=== PATIENT | male | born 1940 | race Caucasian/White ===

== ENCOUNTER 2019-04-23 08:14 | Emergency (ER) | payer OTHER, MEDICARE ==
[2019-04-23] MEDS ORDERED: NA CHLORIDE 0.9% 2,000 ML ONE (08:38)
[2019-04-23 08:46] LABS: Basophils % 0.4 % (0-1.3); Hematocrit 49.9 % (39.6-49.0); MPV 8.7 fL (7.6-11.3); RBC Red Blood Cell Count 5.34 M/uL (4.33-5.43)
[2019-04-23 08:47] LABS: Protime INR 0.99
[2019-04-23] MEDS ORDERED: METHYLPREDNISOLONE 125 MG INJ ONE (08:47)
[2019-04-23] MEDS ORDERED: FAMOTIDINE 20 MG/2 ML VIAL IV ONE (08:47)
[2019-04-23] MEDS ORDERED: DIPHENHYDRAMINE 50 MG/ML VIAL ONE (08:47)
--- NOTE | 2019-04-23 08:56 | RAD REPORT ---
EXAM DESCRIPTION: RAD - Chest Single View - 04/23/2019 8:45 am CLINICAL HISTORY: MALAISE Chest pain. COMPARISON: No comparisons FINDINGS: Portable technique limits examination quality. The lungs are grossly clear. The heart is normal in size. No displaced fractures. IMPRESSION: No acute intrathoracic process suspected.
[2019-04-23 09:01] LABS: ALT/SGPT 27 U/L (12-78); AST/SGOT 22 U/L (15-37); Albumin 3.2 g/dL (3.4-5.0); Alkaline Phosphatase 82 U/L (45-117); BUN Blood Urea Nitrogen 16 mg/dL (7-18); Bicarbonate 25 mmol/L (21-32); Bilirubin Direct 0.2 mg/dL (0-0.2); Bilirubin Total 0.6 mg/dL (0.2-1.0); Glucose Level 124 mg/dL (74-106); Magnesium 2.1 mg/dL (1.8-2.4); NT PRO-BNP 46 pg/mL (<450); Potassium 3.7 mmol/L (3.5-5.1); Sodium Level 140 mmol/L (136-145); Troponin (Emerg Dept Use Only) < 0.02 ng/mL (0.0-0.045)
--- NOTE | 2019-04-23 10:01 | ER ---
Nurse's Notes [facility] Name: Rodolfo Dawson Age: 78 yrs Sex: Male : 1940 Arrival Date: 04/23/2019 Time: 08:14 Bed 13 Private MD: Diagnosis: Diarrhea, unspecified;Weakness;Enteritis;Hypotension Presentation: 04/23 08:25 Presenting complaint: Patient states: rash started this morning, all over body, also iw has not been feeling well for past 3 days, diarrhea X 2 days, pt warm but diaphoretic. Transition of care: patient was not received from another setting of care. Onset of symptoms was April 20, 2019. Risk Assessment: Do you want to hurt yourself or someone else? Patient reports no desire to harm self or others. Initial Sepsis Screen: Does the patient meet any 2 criteria? Systolic BP < 90 mmHg. Does the patient have a suspected source of infection? Yes: Other: diarrhea. Care prior to arrival: None. 08:25 Method Of Arrival: Wheelchair iw 08:25 Acuity: JESSI 2 iw Triage Assessment: 08:30 General: Appears in no apparent distress. comfortable, ill, Behavior is cooperative, bp appropriate for age, anxious. Pain: Denies pain. EENT: No deficits noted. Neuro: Level of Consciousness is awake, alert, obeys commands, Oriented to person, place, time, situation, Appropriate for age. Cardiovascular: Rhythm is sinus rhythm. Respiratory: Reports shortness of breath Onset: The symptoms/episode began/occurred this morning, the patient has mild shortness of breath. GI: Reports diarrhea. : No signs and/or symptoms were reported regarding the genitourinary system. Derm: Rash noted that is itchy, red, urticaria. Musculoskeletal: No deficits noted. Historical: - Allergies: 08:28 Benadryl; iw - Home Meds: 08:28 None [Active]; iw - PMHx: 08:28 None; iw - PSHx: 08:28 None; iw - Immunization history:: Adult Immunizations not up to date. - Coronavirus screen:: The patient has NOT traveled to [place] in the past 14 days. Proceed with normal triage process as indicated. - Social history:: Smoking status: Patient denies any tobacco usage or history of. - Ebola Screening: : Patient negative for fever greater than or equal to 101.5 degrees Fahrenheit, and additional compatible Ebola Virus Disease symptoms Patient denies exposure to infectious person Patient denies travel to an Ebola-affected area in the 21 days before illness onset No symptoms or risks identified at this time. Screenin:35 Abuse screen: Denies threats or abuse. Denies injuries from another. Nutritional bp screening: No deficits noted. Tuberculosis screening: No symptoms or risk factors identified. Fall Risk None identified. Assessment: 08:35 General: SEE TRIAGE NOTE. bp 09:15 Reassessment: Patient appears in no apparent distress at this time. Patient and/or hb family updated on plan of care and expected duration. Pain level reassessed. Patient is alert, oriented x 3, equal unlabored respirations, skin warm/dry/pink. 10:13 Reassessment: Patient appears in no apparent distress at this time. Patient and/or hb family updated on plan of care and expected duration. Pain level reassessed. Patient is alert, oriented x 3, equal unlabored respirations, skin warm/dry/pink. Patient denies pain at this time. Patient states feeling better. Patient states symptoms have improved. Vital Signs: 08:28 BP 60 / 51; Pulse 57; Resp 20 S; Temp 97.6(O); Pulse Ox 95% on R/A; Weight 86.18 kg; iw Height 5 ft. 9 in. (175.26 cm); Pain 0/10; 08:41 BP 90 / 65; Pulse 57; Resp 12; Pulse Ox 97% ; bp 09:28 BP 126 / 72 Supine; Pulse 70; hb 09:33 BP 120 / 72 Sitting; Pulse 75; hb 09:39 BP 123 / 76 Standing; Pulse 77; hb 08:28 Body Mass Index 28.06 (86.18 kg, 175.26 cm) iw ED Course: 08:14 Patient arrived in ED. as 08:20 David Lainez, SON is Primary Nurse. bp 08:27 Triage completed. iw 08:28 Arm band placed on. iw 08:30 Leonard Mcghee MD is Attending Physician. kdr 08:30 Inserted saline lock: 18 gauge in right forearm, using aseptic technique. Blood bp collected. 08:41 Patient has correct armband on for positive identification. Bed in low position. Call bp light in reach. Side rails up X2. lunchroom monitor on. Pulse ox on. NIBP on. 09:15 No provider procedures requiring assistance completed. IV discontinued, intact, hb bleeding controlled, No redness/swelling at site. Pressure dressing applied. Administered Medications: 08:35 Drug: NS 0.9% 1000 ml Route: IV; Rate: 1000 ml; Site: right forearm; bp 08:38 Drug: NS 0.9% 1000 ml Route: IV; Rate: 1 bolus; Site: right forearm; bp 08:50 Drug: Pepcid 20 mg Route: IVP; Site: right forearm; hb 08:51 Drug: SOLU-Medrol 125 mg Route: IVP; Site: right forearm; hb 08:51 Drug: Benadryl 25 mg Route: IVP; Site: right forearm; hb Outcome: 09:15 Discharged to home ambulatory, with family. hb 09:15 Condition: stable 09:15 Discharge instructions given to patient, Instructed on discharge instructions, follow up and referral plans. medication usage, Demonstrated understanding of instructions, follow-up care, medications. 10:00 Discharge ordered by . kdr 10:14 Patient left the ED. hb Signatures: Leonard Mcghee MD MD kdr Marilynn Dugan Irene, RN RN Bhavani Cunningham RN RN David Lainez RN RN bp
--- NOTE | 2019-04-23 10:02 | EDPHYS ---
Physician Documentation [facility] Name: Rodolfo Dwason Age: 78 yrs Sex: Male : 1940 Arrival Date: 04/23/2019 Time: 08:14 Bed 13 Private MD: ED Physician Leonard Mcghee HPI: 04/23 09:02 This 78 yrs old Male presents to ER via Wheelchair with complaints of kdr Shortness Of Breath, Hives. 09:04 The patient has had diarrhea for the last three - four days. Profuse, watery and brown. kdr It had been improving and then had worsening of his s/s yesterday. He also noted a new rash this morning that started under his arm pits and extended down and and around his trunk. He states that the rash is very itchy. He has no other complaints at this time. Onset: The symptoms/episode began/occurred gradually, 3 day(s) ago. Severity of symptoms: At their worst the symptoms were moderate in the emergency department the symptoms are unchanged. The patient has not experienced similar symptoms in the past. The patient has not recently seen a physician. The patient is visiting here from [place] and has not had any known exposure foreign travelers. Historical: - Allergies: 08:28 Benadryl; iw - Home Meds: 08:28 None [Active]; iw - PMHx: 08: None; iw - PSHx: 08:28 None; iw - Immunization history:: Adult Immunizations not up to date. - Coronavirus screen:: The patient has NOT traveled to [place] in the past 14 days. Proceed with normal triage process as indicated. - Social history:: Smoking status: Patient denies any tobacco usage or history of. - Ebola Screening: : Patient negative for fever greater than or equal to 101.5 degrees Fahrenheit, and additional compatible Ebola Virus Disease symptoms Patient denies exposure to infectious person Patient denies travel to an Ebola-affected area in the 21 days before illness onset No symptoms or risks identified at this time. ROS: 09:04 Constitutional: Negative for fever, chills, and weight loss, Eyes: Negative for injury, kdr pain, redness, and discharge, ENT: Negative for injury, pain, and discharge, Neck: Negative for injury, pain, and swelling, Cardiovascular: Negative for chest pain, palpitations, and edema, Respiratory: Negative for shortness of breath, cough, wheezing, and pleuritic chest pain, Back: Negative for injury and pain, : Negative for injury, bleeding, discharge, and swelling, MS/Extremity: Negative for injury and deformity, Neuro: Negative for headache, weakness, numbness, tingling, and seizure activity. Psych: Negative for depression, anxiety, suicide ideation, homicidal ideation, and hallucinations, Allergy/Immunology: Negative for hives, rash, and allergies, Endocrine: Negative for neck swelling, polydipsia, polyuria, polyphagia, and marked weight changes, Hematologic/Lymphatic: Negative for swollen nodes, abnormal bleeding, and unusual bruising. 09:04 Abdomen/GI: Positive for abdominal pain, nausea, diarrhea, abdominal cramps, Negative for vomiting, constipation, black/tarry stool, rectal pain, rectal bleeding, bowel incontinence. Exam: 09:04 Constitutional: This is a well developed, well nourished patient who is awake, alert, kdr and in mild distress. Head/Face: Normocephalic, atraumatic. Eyes: Pupils equal round and reactive to light, extra-ocular motions intact. Lids and lashes normal. Conjunctiva and sclera are non-icteric and not injected. Cornea within normal limits. Periorbital areas with no swelling, redness, or edema. Neck: Trachea midline, no thyromegaly or masses palpated, and no cervical lymphadenopathy. Supple, full range of motion without nuchal rigidity, or vertebral point tenderness. No Meningismus. Chest/axilla: Normal chest wall appearance and motion. Nontender with no deformity. No lesions are appreciated. Cardiovascular: Regular rate and rhythm with a normal S1 and S2. No gallops, murmurs, or rubs. Normal PMI, no JVD. No pulse deficits. Respiratory: Lungs have equal breath sounds bilaterally, clear to auscultation and percussion. No rales, rhonchi or wheezes noted. No increased work of breathing, no retractions or nasal flaring. Abdomen/GI: Soft, non-tender, with normal bowel sounds. No distension or tympany. No guarding or rebound. No evidence of tenderness throughout. Back: No spinal tenderness. No costovertebral tenderness. Full range of motion. MS/ Extremity: Pulses equal, no cyanosis. Neurovascular intact. Full, normal range of motion. Neuro: Awake and alert, GCS 15, oriented to person, place, time, and situation. Cranial nerves II-XII grossly intact. Motor strength 5/5 in all extremities. Sensory grossly intact. Cerebellar exam normal. Normal gait. Psych: Awake, alert, with orientation to person, place and time. Behavior, mood, and affect are within normal limits. 09:04 Skin: Appearance: Moisture: diaphoretic, damp. Vital Signs: 08:28 BP 60 / 51; Pulse 57; Resp 20 S; Temp 97.6(O); Pulse Ox 95% on R/A; Weight 86.18 kg; iw Height 5 ft. 9 in. (175.26 cm); Pain 0/10; 08:41 BP 90 / 65; Pulse 57; Resp 12; Pulse Ox 97% ; bp 09:28 BP 126 / 72 Supine; Pulse 70; hb 09:33 BP 120 / 72 Sitting; Pulse 75; hb 09:39 BP 123 / 76 Standing; Pulse 77; hb 08:28 Body Mass Index 28.06 (86.18 kg, 175.26 cm) iw MDM: 09:12 Data reviewed: vital signs, nurses notes, lab test result(s), EKG, radiologic studies. kdr Counseling: I had a detailed discussion with the patient and/or guardian regarding: the historical points, exam findings, and any diagnostic results supporting the discharge/admit diagnosis, lab results. ED course: The patient was initially very hypotensive and was diaphoretic. By the time of my exam, his SBP was in the 90's and is currently 110. 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 10:00 Patient medically screened. kdr 04/23 08:23 Order name: Basic Metabolic Panel kb 04/23 08:23 Order name: CBC with Diff kb 04/23 08:23 Order name: LFT's kb 04/23 08:23 Order name: Magnesium kb 04/23 08:23 Order name: NT PRO-BNP kb 04/23 08:23 Order name: PT-INR kb 04/23 08:23 Order name: Troponin (emerg Dept Use Only) kb 04/23 08:30 Order name: Fecal Leukocyte Stain kb 04/23 08:30 Order name: Stool Culture kb 04/23 08:30 Order name: Occult Blood kb 04/23 08:48 Order name: Protime (+INR); Complete Time: 08:51 EDMS 04/23 08:49 Order name: CBC with Automated Diff; Complete Time: 08:51 EDMS 04/23 09:04 Order name: Basic Metabolic Panel; Complete Time: 09:23 EDMS 04/23 09:04 Order name: Liver (Hepatic) Function; Complete Time: 09:23 EDMS 04/23 08:23 Order name: XRAY Chest (1 view) kb 04/23 08:23 Order name: EKG; Complete Time: 08:25 kb 04/23 08:23 Order name: Cardiac monitoring; Complete Time: 08:32 kb 04/23 08:23 Order name: EKG - Nurse/Tech; Complete Time: 08:32 kb 04/23 08:23 Order name: IV Saline Lock; Complete Time: 08:32 kb 04/23 08:23 Order name: Labs collected and sent; Complete Time: 08:32 kb 04/23 08:23 Order name: O2 Per Protocol; Complete Time: 08:32 kb 04/23 09:04 Order name: Troponin (Emerg Dept Use Only); Complete Time: 09:23 EDMS 04/23 09:04 Order name: NT PRO-BNP; Complete Time: 09:23 EDMS 04/23 09:04 Order name: Magnesium; Complete Time: 09:23 EDMS 04/23 09:50 Order name: RAD EDMS 04/23 08:23 Order name: O2 Sat Monitoring; Complete Time: 08:32 kb 04/23 09:23 Order name: Orthostatic Blood Pressure; Complete Time: 09:38 kdr Administered Medications: 08:35 Drug: NS 0.9% 1000 ml Route: IV; Rate: 1000 ml; Site: right forearm; bp 08:38 Drug: NS 0.9% 1000 ml Route: IV; Rate: 1 bolus; Site: right forearm; bp 08:50 Drug: Pepcid 20 mg Route: IVP; Site: right forearm; hb 08:51 Drug: SOLU-Medrol 125 mg Route: IVP; Site: right forearm; hb 08:51 Drug: Benadryl 25 mg Route: IVP; Site: right forearm; hb Disposition: 04/23/19 10:00 Discharged to Home. Impression: Diarrhea, unspecified, Weakness, Enteritis, Hypotension. - Condition is Stable. - Discharge Instructions: Diarrhea, Adult, [id number], Weakness, [id number]. - Medication Reconciliation Form, Thank You Letter form. - Follow up: Private Physician; When: 2 - 3 days; Reason: If symptoms return, Further diagnostic work-up, Recheck today's complaints, Continuance of care, Re-evaluation by your physician. - Problem is new. - Symptoms have improved. Signatures: Dispatcher [employer] EDMI Jannet Love, [employer]C [employer]-CkLeonard [address] MD MD kdr Baylee Robledo, SON RN Bhavani Cunningham, OSN RN David Lainez, RN RN bp Corrections: (The following items were deleted from the chart) 10:14 10:00 04/23/2019 10:00 Discharged to Home. Impression: Diarrhea, unspecified; Weakness; hb Enteritis; Hypotension. Condition is Stable. Forms are Medication Reconciliation Form, Thank You Letter, Antibiotic Education, Prescription Opioid Use. Follow up: Private Physician; When: 2 - 3 days; Reason: If symptoms return, Further diagnostic work-up, Recheck today's complaints, Continuance of care, Re-evaluation by your physician. Problem is new. Symptoms have improved. kdr
--- NOTE | 2019-04-23 11:41 | EKG ---
Test Date: 2019-04-23 Test Time: 08:27:11 Engine Room Helper: ALESSANDRO MEASUREMENT RESULTS: Intervals: Rate: 59 AR: 146 QRSD: 84 QT: 420 QTc: 415 [place]: P: 269 AR: 146 QRS: 78 T: 63 INTERPRETIVE STATEMENTS: Unusual P axis, possible ectopic atrial bradycardia Low voltage QRS Abnormal ECG No previous ECG available for comparison Electronically Signed On 04-23-19 11:40:53 BUSINESS SYSTEMS ADVISOR by Al Norman
[2019-04-24 07:04] VITALS: TEMP 97.6
[2019-04-24 07:05] VITALS: O2SAT 97
[2019-04-24 07:10] VITALS: BP 123/76
== END 2019-04-23 10:14 | disposition home or self-care (01) ==
LOC: ER 08:14
DX: K52.9 Noninfective gastroenteritis and colitis, unspecified (principal); R53.1 Weakness; I95.9 Hypotension, unspecified
CPT/HCPCS: 93005; 85025; 80048; 36415; 83735; 85610; 80076; 84484; 83880; 71045; 96375; 96374; 99284; J1200; J7030; J2930